=== PATIENT | female | born 1970 | race Caucasian/White ===

== ENCOUNTER 2019-12-24 14:39 | Inpatient (IN) | payer OTHER ==
--- NOTE | 2019-12-24 15:00 | BHS.RME ---
Substance Use & Tx History - Substance Use History Alcohol Substance amount: 1/2-2 pints vodka Frequency of use: Daily Substance route: Oral Date of Last Use: 12/24/19 Marijuana/Hashish Substance amount: sporadic Frequency of use: Daily Substance route: Smoking Date of Last Use: 12/23/19 Nicotine Substance amount: 1/2 pack Frequency of use: Daily Substance route: Smoking Date of Last Use: 12/24/19 Physical/Psych/Mental Status - Behavior General Behavior: Increased activity (restlessness, agitation) Eye Contact: Normal - Cooperativeness Cooperativeness: Cooperative - Thinking Thought Processes: Tight, Logical, Goal Directed Thought content: Future oriented - Physical Health Problems Is patient presently having any pain?: No Does patient presently have any injuries (include location): No Does patient currently have a fever: No Is patient : No CIWA Nausea/Vomitin Muscle Tremors: 4-Moderate,w/Arms Extend Anxiety: 3 Agitation: 3 Paroxysmal Sweats: 4-Forehead w/Sweat Beads Orientation: 0-Oriented Tacttile Disturbances: 0-None Auditory Disturbances: 0-None Visual Disturbances: 0-None Headache: 1-Very Mild CIWA-Ar Total Score: 18
--- NOTE | 2019-12-24 17:33 | HP ---
CIWA Score Nausea/Vomitin Muscle Tremors: 4-Moderate,w/Arms Extend Anxiety: 4-Mod. Anxious/Guarded Agitation: 2 Paroxysmal Sweats: 3 Orientation: 0-Oriented Tacttile Disturbances: 0-None Auditory Disturbances: 0-None Visual Disturbances: 0-None Headache: 3-Moderate CIWA-Ar Total Score: 19 - Admission Criteria OASAS Guidelines: Admission for Medically Managed Detox: Requires at least one of the followin. CIWA greater than 12 2. Seizures within the past 24 hours 3. Delirium tremens within the past 24 hours 4. Hallucinations within the past 24 hours 5. Acute intervention needed for co occurring medical disorder 6. Acute intervention needed for co occurring psychiatric disorder 7. Severe withdrawal that cannot be handled at a lower level of care (continued vomiting, continued diarrhea, abnormal vital signs) requiring intravenous medication and/or fluids 8. Patient presents the following: CIWA greater than 12 Admission Criteria Met: Admission criteria met Admitting History and Physical - Admission History Source: Patient Limitations to Obtaining History: No Limitations - Past Surgical History Past Surgical History: Yes: Laminectomy - Smoking History Smoking history: Current every day smoker Admission [facility] Chief Complaint: alcohol withdrawal symptoms Allergies/Adverse Reactions: Allergies Allergy/AdvReac Type Severity Reaction Status Date / Time ibuprofen Allergy Verified 12/24/19 17:44 shellfish derived Allergy Verified 12/24/19 17:44 History of Present Illness: Patient is a 49 yo female, homeless, residing in long term with hx of alcohol dependence, marijuana and nicotine dependence is here seeking detox after she was seen at [facility] emergency department today for alcohol withdrawal symptoms and was referred to this facility for treatment. Denies any significant medical history. Psych: Anxiety. Patient denies hx of seizures or blackouts. Longest period of sobriety two years while in her 20s. Last detox at [facility] completed treatment July 2019, but keeps relapsing. Exam Limitations: No Limitations - Review of Systems Constitutional: Chills, Loss of Appetite, Weakness EENT: reports: No Symptoms Reported Respiratory: reports: No Symptoms reported Cardiac: reports: No Symptoms Reported GI: reports: Diarrhea, Nausea, Poor Appetite, Poor Fluid Intake, Vomiting, Indigestion, Abdominal cramping : reports: No Symptoms Reported Musculoskeletal: reports: No Symptoms Reported Integumentary: reports: No Symptoms Reported Neuro: reports: Headache, Weakness Endocrine: reports: Excessive Sweating Hematology: reports: No Symptoms Reported Psychiatric: reports: Orientated x3, Anxious Other Systems: Reviewed and Negative Patient History - Patient Medical History Hx Anemia: No Hx Asthma: No Hx Chronic Obstructive Pulmonary Disease (COPD): No Hx Cancer: No Hx Cardiac Disorders: No Hx Congestive Heart Failure: No Hx Hypertension: No Hx Hypercholesterolemia: No Hx Pacemaker: No HX Cerebrovascular Accident: No Hx Seizures: No Hx Dementia: No Hx Diabetes: No Hx Gastrointestinal Disorders: No Hx Liver Disease: No Hx Genitourinary Disorders: No Hx Sexually Transmitted Disorders: No Hx Renal Disease (ESRD): No Hx Thyroid Disease: No Hx Human Immunodeficiency Virus (HIV): No Hx Hepatitis C: No Hx Depression: No Hx Suicide Attempt: No Hx Bipolar Disorder: No Hx Schizophrenia: No Other Medical History: Anxiety - Patient Surgical History Past Surgical History: Yes Hx Neurologic Surgery: No Hx Cataract Extraction: No Hx Cardiac Surgery: No Hx Lung Surgery: No Hx Breast Surgery: No Hx Breast Biopsy: No Hx Abdominal Surgery: No Hx Appendectomy: No Hx Cholecystectomy: No Hx Genitourinary Surgery: No Hx Section: No Hx Orthopedic Surgery: No Hx Hysterectomy: No Other Surgical History: Laminectomy 2006 - PPD History Previous Implant?: No Implanted On Prior [facility] Admission?: No PPD to be Administered?: Yes - Reproductive History Patient is a Female of Child Bearing Age (11 -55 yrs old): Yes LMP comment: Post menopause Patient : No - Smoking Cessation Smoking history: Current every day smoker Have you smoked in the past 12 months: Yes Aproximately how many cigarettes per day: 0.5 Hx Chewing Tobacco Use: No Initiated information on smoking cessation: Yes 'Breaking Loose' booklet given: 12/24/19 - Substance & Tx. History Hx Alcohol Use: Yes Hx Substance Use: Yes Substance Use Type: Marijuana Hx Substance Use Treatment: Yes ([facility] July 2019) - Substances abused Alcohol Substance route: Oral Frequency: Daily Amount used: 1/2 - 2 pint Age of first use: 43 Date of last use: 12/24/19 Admission Physical Exam BHS - Physical General Appearance: Yes: Appropriately Dressed, Moderate Distress, Tremorous, Sweating, Anxious HEENTM: Yes: Within Normal Limits Respiratory: Yes: Within Normal Limits Neck: Yes: Within Normal Limits Breast: Yes: Breast Exam Deferred Cardiology: Yes: Within Normal Limits Abdominal: Yes: Within Normal Limits Genitourinary: Yes: Within Normal Limits Back: Yes: Normal Inspection Musculoskeletal: Yes: Gait Steady Extremities: Yes: Tremors Neurological: Yes: Within Normal Limits, Normal Mood/Affect Integumentary: Yes: Normal Color, Clammy Lymphatic: Yes: Within Normal Limits - Diagnostic (1) Alcohol dependence with withdrawal, uncomplicated Current Visit: Yes Status: Acute (2) Tremor due to drug withdrawal Current Visit: Yes Status: Acute Cleared for Admission S - Detox or Rehab [facility] Level of Care: Medically Managed Detox Regimen/Protocol: Valium Breathalyzer - Breathalyzer Breathalyzer: 0.037 Urine Drug Screen - Test Device Lot number: [id number] Expiration date: 12/20/20 - Control Is test valid?: Yes - Results Drug screen NEGATIVE: No Urine drug screen results: THC-Marijuana Inpatient Rehab Admission - Rehab Decision to Admit Inpatient rehab admission?: No
[2019-12-24] MEDS ORDERED: MAG HYDROX/AL HYDROX/SIMETH 30 ML UNIT-DOSE CUP PO PRN (17:45)
[2019-12-24] MEDS ORDERED: MAGNESIUM CITRATE 300 ML BOTTLE PO PRN (17:45)
[2019-12-24] MEDS ORDERED: METHOCARBAMOL 500 MG TABLET PO PRN (17:45)
[2019-12-24] MEDS ORDERED: hydrOXYzine PAMOATE 25 MG CAPSULE (FP) PO PRN (17:45)
[2019-12-24] MEDS ORDERED: MAGNESIUM HYDROX 2400MG/30ML ORAL SUSPENSION 30 ML CUP PO PRN (17:45)
[2019-12-24] MEDS ORDERED: ACETAMINOPHEN 325 MG TABLET (FP) PO PRN ×2 (17:45)
[2019-12-24] MEDS ORDERED: MENTHOL/PHENOL 1 EACH UD MM PRN (17:45)
[2019-12-24] MEDS ORDERED: BACLOFEN 10 MG TABLET (FP) PO PRN (17:49)
[2019-12-24] MEDS ORDERED: ONDANSETRON *ODT* 4 MG TABLET SL ONE (19:00)
[2019-12-24 19:04] VITALS: BMI 25.2
[2019-12-24] MEDS: diazePAM 5 MG TABLET PO PRN (19:45)
[2019-12-24] MEDS: PRENATAL VITAMINS W/ FOLIC ACID TABLET (FP) PO SCH (19:45)
[2019-12-24] MEDS: diazePAM 5 MG TABLET PO SCH (22:21)
[2019-12-24] MEDS: THIAMINE HCL 100 MG TABLET (FP) PO SCH (22:22)
[2019-12-24] MEDS: MELATONIN 5 MG TABLETS PO SCH (22:22)
[2019-12-25] MEDS: diazePAM 5 MG TABLET PO SCH ×3 (06:58→22:46)
[2019-12-25] MEDS: PRENATAL VITAMINS W/ FOLIC ACID TABLET (FP) PO SCH (10:22)
[2019-12-25] MEDS: NICOTINE 14 MG/24 HOURS TOPICAL PATCH TD SCH (10:22)
[2019-12-25] MEDS: diazePAM 5 MG TABLET PO PRN ×2 (10:26→19:12)
--- NOTE | 2019-12-25 10:33 | PN ---
[facility] CIWA - CIWA Score Nausea/Vomitin-No Nausea/No Vomiting Muscle Tremors: None Anxiety: 0-No Anxiety, at Ease Agitation: 0-Normal Activity Paroxysmal Sweats: 1-Minimal Palms Moist Orientation: 1-Uncertain about Date Tacttile Disturbances: 0-None Auditory Disturbances: 0-None Visual Disturbances: 0-None Headache: 0-None Present CIWA-Ar Total Score: 2 BHS Progress Note (SOAP) Subjective: Patient was examined in the room. Patient has a pleasant demeanor. Patient in no acute distress and has no complaints. Objective: 12/25/19 10:28 General: Patient alert and in no acute distress, WNWD, feels well Mental status: Patient judgment intact MSK/Neuro: Patient MS 5/5 Gait: Patient ambulates properly, gait steady skin: no lesions visible 12/25/19 10:29 Last Vital Signs Temp Pulse Resp BP Pulse Ox 97.7 F 88 18 152/98 98 12/25/19 08:51 12/25/19 08:51 12/25/19 08:51 12/25/19 08:51 12/25/19 08:51 Current Medications Generic Name Dose Route Start Last Admin Trade Name Freq PRN Reason Stop Dose Admin Acetaminophen 650 mg 12/24/19 17:45 Tylenol - PO Q6H PRN PAIN LEVEL 4 - 6 Acetaminophen 650 mg 12/24/19 17:45 Tylenol - PO Q6H PRN FEVER Al Hydroxide/Mg Hydroxide 30 ml 12/24/19 17:45 Mylanta Oral Suspension - PO Q6H PRN DYSPEPSIA Baclofen 10 mg 12/24/19 17:49 Lioresal - PO TID PRN tremors / spasms Diazepam 5 mg 12/24/19 22:00 12/25/19 06:58 Valium - PO 12/25/19 22:01 5 mg TID KENNETH Administration Diazepam 5 mg 12/26/19 06:00 Valium - PO 12/26/19 18:01 Q12H KENNETH Diazepam 5 mg 12/27/19 06:00 Valium - PO 12/27/19 06:01 ONCE ONE Diazepam 10 mg 12/24/19 17:45 12/25/19 10:26 Valium - PO 12/27/19 17:44 10 mg Q4H PRN Administration WITHDRAWAL(CONT SUBST) Eucalyptus/Menthol/Phenol/Sorbitol 1 each 12/24/19 17:45 Cepastat Lozenge - MM 12/30/19 17:45 Q4H PRN SORE THROAT Hydroxyzine Pamoate 25 mg 12/24/19 17:45 Vistaril - PO 12/30/19 17:47 Q6H PRN ANXIETY Magnesium Citrate 300 ml 12/24/19 17:45 Citroma - PO Q48H PRN CONSTIPATION Magnesium Hydroxide 30 ml 12/24/19 17:45 Milk Of Magnesia - PO PRN PRN CONSTIPATION Melatonin 5 mg 12/24/19 22:00 12/24/19 22:22 Melatonin PO 5 mg HS KENNETH Administration Nicotine 14 mg 12/25/19 10:00 12/25/19 10:22 Nicoderm Patch - TD Not Given DAILY [facility] Multivit/Folic Acid/Iron 1 tab 12/24/19 19:00 12/25/19 10:22 Vitamins (Sjr) - PO Not Given DAILY KENNETH Thiamine HCl 100 mg 12/24/19 22:00 12/24/19 22:22 Vitamin B1 - PO 100 mg HS KENNETH Administration Discontinued Medications Generic Name Dose Route Start Last Admin Trade Name Freq PRN Reason Stop Dose Admin Methocarbamol 500 mg 12/24/19 17:45 Robaxin - PO 12/30/19 17:45 Q6H PRN MUSCLE SPASMS Ondansetron HCl 4 mg 12/24/19 19:00 12/24/19 19:45 Zofran Odt - SL 12/24/19 19:01 4 mg ONCE ONE Administration Tuberculin PPD 5 units 12/24/19 19:00 12/24/19 19:49 Tubersol ([facility] Only) 5ml Vial ID 12/24/19 19:01 5 tu ONCE ONE Administration Assessment: 12/25/19 10:29 1. Patient on valium taper due to alcohol abuse. Plan: 1. Patient on valium taper due to alcohol abuse.
--- NOTE | 2019-12-25 10:57 | EKG ---
Test Reason : Blood Pressure : / mmHG Vent. Rate : 066 BPM Atrial Rate : 066 BPM P-R Int : 178 ms QRS Dur : 080 ms QT Int : 438 ms P-R-T Axes : 066 060 053 degrees QTc Int : 459 ms NORMAL SINUS RHYTHM PEAKED T WAVES, CLINICAL CORRELATION REQUIRED NO PREVIOUS ECGS AVAILABLE Confirmed by RACHEL CUMMINGS MD ([id number]) on 12/25/2019 10:56:31 AM Referred By: DARREN SOSA Confirmed By:RACHEL CUMMINGS MD
--- NOTE | 2019-12-25 11:51 | CONSULT ---
[facility] Psychiatric Consult - Data Date of interview: 12/25/19 Admission source: [facility] Identifying data: Patient is a 49 year old single female, without children, unemployed, resides in a long term, and is supported with carlos assistance and food stamps. This is patient's first admission to detox at [facility]. Patient admitted to for alcohol dependence. Substance Abuse History: Smoking Cessation. Smoking history: Current every day smoker. Have you smoked in the past 12 months: Yes. Aproximately how many cigarettes per day: 0.5. Hx Chewing Tobacco Use: No. Initiated information on smoking cessation: Yes. 'Breaking Loose' booklet given: 12/24/19. - Substance & Tx. History. Hx Alcohol Use: Yes. Hx Substance Use: Yes. Substance Use Type: Marijuana. Hx Substance Use Treatment: Yes ([facility] July 2019). - Substances abused. Alcohol. Substance route: Oral. Frequency: Daily. Amount used: 1/2 - 2 pint. Age of first use: 43. Date of last use: 12/24/19 Medical History: Laminectomy Psychiatric History: Patient's first psychiatric contact was at a DPT (Dialectical Behavior Therapy) program approximately seven years ago. She reports being diagnosed with undecided bipolar disorder but was not treated with psychotropic medication. Patient reports history of one psychiatric hospitalization three years ago at [facility] secondary to depression. She was hospitalized for one week but was not prescribed psychotropic medications. Her next psychiatric occured last month at the [facility] clinic in [place], [place]. Patient states that she see's a therapist and has been seeing a psychiatrist remotely. Ms. Sanchez states that she was prescribed lexapro but has yet to fill her prescription. At present patient reports stable mood and is not interested in starting lexapro. Physical/Sexual Abuse/Trauma History: denies. Mental Status Exam - Mental Status Exam Alert and Oriented to: Time, Place, Person Cognitive Function: Good Patient Appearance: Well Groomed Mood: Withdrawn Affect: Mood Congruent Patient Behavior: Appropriate, Cooperative Speech Pattern: Appropriate Voice Loudness: Normal Thought Process: Goal Oriented Thought Disorder: Not Present Hallucinations: Denies Suicidal Ideation: Denies Homicidal Ideation: Denies Insight/Judgement: Poor Sleep: Poorly Appetite: Fair Muscle strength/Tone: Normal Gait/Station: Normal Psychiatric Findings - Problem List ([place] 1, 2,3) (1) Alcohol-induced mood disorder Current Visit: Yes Status: Acute (2) Alcohol dependence with withdrawal, uncomplicated Current Visit: Yes Status: Acute (3) Mood disorder Current Visit: No Status: Suspected - Initial Treatment Plan Initial Treatment Plan: Psychoeducation provided. Detoxification in progress. Observation.
[2019-12-25 12:26] LABS: HEMATOCRIT 40.9 % (32.4-45.2); HEMOGLOBIN 13.4 GM/dL (10.7-15.3); MCH 32.4 pg (25.7-33.7); MCHC 32.7 g/dl (32.0-36.0); MEAN CELL VOLUME 99.1 fl (80-96); MEAN PLT VOLUME 10.7 fl (7.5-11.1); PLATELET COUNT 117 K/MM3 (134-434); RBC 4.13 M/mm3 (3.60-5.2); WHITE BLOOD COUNT 4.3 K/mm3 (4.0-10.0)
[2019-12-25] MEDS: NICOTINE POLACRILEX 2 MG GUM BUC PRN ×3 (12:36→19:09)
[2019-12-25 12:42] LABS: ALBUMIN 3.5 g/dl (3.4-5.0); BILIRUBIN,TOTAL 0.6 mg/dL (0.2-1); BLOOD UREA NITROGEN 8.5 mg/dL (7-18); CALCIUM 8.7 mg/dL (8.5-10.1); CREATININE 0.7 mg/dL (0.55-1.3); POTASSIUM 4.1 mmol/L (3.5-5.1); TOT PROT 6.5 g/dl (6.4-8.2)
[2019-12-25 21:11] LABS: EPI CELLS 19 /uL (0-25.1); HYALINE CASTS 0 /uL (0-3.1); PH,URINE 6.5 (5.0-8.0); URINE APPEARANCE CLEAR; URINE BACTERIA 176 /uL (0-1359); URINE BILIRUBIN NEGATIVE (NEGATIVE); URINE COLOR YELLOW; URINE GLUCOSE (UA) 1+ (NEGATIVE); URINE KETONE NEGATIVE (NEGATIVE); URINE LEUK ESTERASE 2+ (NEGATIVE); URINE NITRITE NEGATIVE (NEGATIVE); URINE PROTEIN NEGATIVE (NEGATIVE); URINE RBC 1 /uL (0-23.9); URINE UROBILINOGEN 0.2 mg/dL (0.2-1.0); URINE WBC 70 /uL (0-25.8)
[2019-12-25] MEDS: MELATONIN 5 MG TABLETS PO SCH (22:46)
[2019-12-25] MEDS: THIAMINE HCL 100 MG TABLET (FP) PO SCH (22:47)
[2019-12-26] MEDS: diazePAM 5 MG TABLET PO SCH ×2 (05:45→18:09)
--- NOTE | 2019-12-26 10:17 | PN ---
[facility] CIWA - CIWA Score Nausea/Vomitin-No Nausea/No Vomiting Muscle Tremors: None Anxiety: 1-Mildly Anxious Agitation: 0-Normal Activity Paroxysmal Sweats: 1-Minimal Palms Moist Orientation: 0-Oriented Tacttile Disturbances: 0-None Auditory Disturbances: 0-None Visual Disturbances: 0-None Headache: 0-None Present CIWA-Ar Total Score: 2 BHS Progress Note (SOAP) Subjective: c/o mild withdrawal symptoms. Objective: 12/26/19 10:16 Vital Signs 12/26/19 12/26/19 06:39 08:43 Temperature 97.7 F 97.8 F Pulse Rate 80 64 Respiratory 16 18 Rate Blood Pressure 134/94 127/78 O2 Sat by Pulse 97 97 Oximetry (%) Laboratory Last Values WBC 4.3 K/mm3 (4.0-10.0) 12/25/19 08:40 RBC 4.13 M/mm3 (3.60-5.2) 12/25/19 08:40 Hgb 13.4 GM/dL (10.7-15.3) 12/25/19 08:40 Hct 40.9 % (32.4-45.2) 12/25/19 08:40 MCV 99.1 fl (80-96) H 12/25/19 08:40 MCH 32.4 pg (25.7-33.7) 12/25/19 08:40 MCHC 32.7 g/dl (32.0-36.0) 12/25/19 08:40 RDW 15.0 % (11.6-15.6) 12/25/19 08:40 Plt Count 117 K/MM3 (134-434) L 12/25/19 08:40 MPV 10.7 fl (7.5-11.1) 12/25/19 08:40 Sodium 138 mmol/L (136-145) 12/25/19 08:40 Potassium 4.1 mmol/L (3.5-5.1) 12/25/19 08:40 Chloride 102 mmol/L (98-107) 12/25/19 08:40 Carbon Dioxide 30 mmol/L (21-32) 12/25/19 08:40 Anion Gap 7 MMOL/L (8-16) L 12/25/19 08:40 BUN 8.5 mg/dL (7-18) 12/25/19 08:40 Creatinine 0.7 mg/dL (0.55-1.3) 12/25/19 08:40 Est GFR (CKD-EPI)AfAm 116.27 12/25/19 08:40 Est GFR (CKD-EPI)NonAf 100.32 12/25/19 08:40 Random Glucose 131 mg/dL (74-106) H 12/25/19 08:40 Calcium 8.7 mg/dL (8.5-10.1) 12/25/19 08:40 Total Bilirubin 0.6 mg/dL (0.2-1) 12/25/19 08:40 AST 27 U/L (15-37) 12/25/19 08:40 ALT 31 U/L (13-61) 12/25/19 08:40 Alkaline Phosphatase 102 U/L (45-117) 12/25/19 08:40 Total Protein 6.5 g/dl (6.4-8.2) 12/25/19 08:40 Albumin 3.5 g/dl (3.4-5.0) 12/25/19 08:40 Urine Color Yellow 12/25/19 17:11 Urine Appearance Clear 12/25/19 17:11 Urine pH 6.5 (5.0-8.0) 12/25/19 17:11 Ur Specific [place] 1.005 (1.010-1.035) L 12/25/19 17:11 Urine Protein Negative (NEGATIVE) 12/25/19 17:11 Urine Glucose (UA) 1+ (NEGATIVE) H 12/25/19 17:11 Urine Ketones Negative (NEGATIVE) 12/25/19 17:11 Urine Blood Negative (NEGATIVE) 12/25/19 17:11 Urine Nitrite Negative (NEGATIVE) 12/25/19 17:11 Urine Bilirubin Negative (NEGATIVE) 12/25/19 17:11 Urine Urobilinogen 0.2 mg/dL (0.2-1.0) 12/25/19 17:11 Ur Leukocyte Esterase 2+ (NEGATIVE) H 12/25/19 17:11 Urine WBC (Auto) 70 /uL (0-25.8) 12/25/19 17:11 Urine RBC (Auto) 1 /uL (0-23.9) 12/25/19 17:11 Urine Casts (Auto) 0 /uL (0-3.1) 12/25/19 17:11 U Epithel Cells (Auto) 19 /uL (0-25.1) 12/25/19 17:11 Urine Bacteria (Auto) 176 /uL (0-1359) 12/25/19 17:11 Syphilis Serology Non-reactive (NONREACTIVE) 12/25/19 08:40 COVID-19 ([facility]) Not detected (Not Detected) 12/24/19 19:15 Labs noted. Assessment: 12/26/19 10:18 AOX3, in no acute respiratory distress. Full ROM, ambulating in the unit. Mild Withdrawal symptoms. For d/c tomorrow. Plan: continue detox. D/C in AM.
[2019-12-26] MEDS: NICOTINE 14 MG/24 HOURS TOPICAL PATCH TD SCH (10:31)
[2019-12-26] MEDS: PRENATAL VITAMINS W/ FOLIC ACID TABLET (FP) PO SCH (10:31)
[2019-12-26] MEDS: NICOTINE POLACRILEX 2 MG GUM BUC PRN ×3 (13:01→18:59)
[2019-12-26] MEDS: diazePAM 5 MG TABLET PO PRN (22:18)
[2019-12-26] MEDS: MELATONIN 5 MG TABLETS PO SCH (22:19)
[2019-12-26] MEDS: THIAMINE HCL 100 MG TABLET (FP) PO SCH (22:19)
[2019-12-27] MEDS: NICOTINE POLACRILEX 2 MG GUM BUC PRN (05:51)
[2019-12-27] MEDS ORDERED: diazePAM 5 MG TABLET PO ONE (06:00)
[2019-12-27] MEDS ORDERED: MASKS NR ONE (06:53)
[2019-12-27 09:31] VITALS: BP 116/65; PULSE 82; TEMP 97.1
--- NOTE | 2019-12-27 13:12 | DS ---
[facility] Detox Discharge Summary Admission Date: 12/24/19 Discharge Date: 12/27/19 - History Present History: Alcohol Dependence Additional Comments: 49 years old female was admitted on 12/24/19 for alcohol withdrawal sx management treated with valium detox regiment seen by psychiatrist no medical intervention ms arteaga has completed the valium regiment and is tolerated well General Appearance: Yes: Appropriately Dressed, no Distress, mild Tremorous, not Sweating, less Anxious HEENTM: Yes: Within Normal Limits Respiratory: Yes: Within Normal Limits Neck: Yes: Within Normal Limits Breast: Yes: Breast Exam Deferred Cardiology: Yes: Within Normal Limits Abdominal: Yes: Within Normal Limits Genitourinary: Yes: Within Normal Limits Back: Yes: Normal Inspection Musculoskeletal: Yes: Gait Steady Extremities: Yes: Tremors Neurological: Yes: Within Normal Limits, Normal Mood/Affect Integumentary: Yes: Normal Color Lymphatic: Yes: Within Normal Limits Pertinent Past History: time for discharge 34 minutes - Physical Exam Results Vital Signs: Vital Signs Temperature 97.1 F L 12/27/19 09:00 Pulse Rate 82 12/27/19 09:00 Respiratory Rate 18 12/27/19 09:00 Blood Pressure 116/65 12/27/19 09:00 O2 Sat by Pulse Oximetry (%) 97 12/27/19 09:00 Pertinent Admission Physical Exam Findings: alcohol withdrawal Vital Signs - 24 hr 12/26/19 12/26/19 12/27/19 16:45 20:35 06:26 Temperature 96.1 F L 97.1 F L 96.4 F L Pulse Rate 72 75 76 Respiratory 18 16 18 Rate Blood Pressure 126/79 125/77 116/73 O2 Sat by Pulse 97 100 97 Oximetry (%) 12/27/19 09:00 Temperature 97.1 F L Pulse Rate 82 Respiratory 18 Rate Blood Pressure 116/65 O2 Sat by Pulse 97 Oximetry (%) Laboratory Tests 12/24/19 12/25/19 12/25/19 19:15 08:40 08:40 WBC 4.3 RBC 4.13 Hgb 13.4 Hct 40.9 MCV 99.1 H MCH 32.4 MCHC 32.7 RDW 15.0 Plt Count 117 L MPV 10.7 Sodium Potassium Chloride Carbon Dioxide Anion Gap BUN Creatinine Est GFR (CKD-EPI)AfAm Est GFR (CKD-EPI)NonAf Random Glucose Calcium Total Bilirubin AST ALT Alkaline Phosphatase Total Protein Albumin Urine Color Urine Appearance Urine pH Ur Specific [place] Urine Protein Urine Glucose (UA) Urine Ketones Urine Blood Urine Nitrite Urine Bilirubin Urine Urobilinogen Ur Leukocyte Esterase Urine WBC (Auto) Urine RBC (Auto) Urine Casts (Auto) U Epithel Cells (Auto) Urine Bacteria (Auto) Syphilis Serology Non-reactive COVID-19 ([facility]) Not detected 12/25/19 12/25/19 08:40 17:11 WBC RBC Hgb Hct MCV MCH MCHC RDW Plt Count MPV Sodium 138 Potassium 4.1 Chloride 102 Carbon Dioxide 30 Anion Gap 7 L BUN 8.5 Creatinine 0.7 Est GFR (CKD-EPI)AfAm 116.27 Est GFR (CKD-EPI)NonAf 100.32 Random Glucose 131 H Calcium 8.7 Total Bilirubin 0.6 AST 27 ALT 31 Alkaline Phosphatase 102 Total Protein 6.5 Albumin 3.5 Urine Color Yellow Urine Appearance Clear Urine pH 6.5 Ur Specific [place] 1.005 L Urine Protein Negative Urine Glucose (UA) 1+ H Urine Ketones Negative Urine Blood Negative Urine Nitrite Negative Urine Bilirubin Negative Urine Urobilinogen 0.2 Ur Leukocyte Esterase 2+ H Urine WBC (Auto) 70 Urine RBC (Auto) 1 Urine Casts (Auto) 0 U Epithel Cells (Auto) 19 Urine Bacteria (Auto) 176 Syphilis Serology COVID-19 ([facility]) lab noted uti asymptomatic - Treatment Hospital Course: Detox Protocol Followed, Detoxed Safely, Responded well, Discharged Condition Good, Rehab Referral Accepted Patient has Accepted a Rehab Referral to: [facility] - Medication Discharge Medications: Ambulatory Orders NK [No Known Home Medication] 12/24/19 - Diagnosis (1) Substance induced mood disorder Status: Suspected (2) Alcohol dependence with withdrawal, uncomplicated Status: Acute - AMA Did Patient Leave Against Medical Advice: No CIWA Score - CIWA Score Nausea/Vomitin-No Nausea/No Vomiting Muscle Tremors: None Anxiety: 1-Mildly Anxious Agitation: 0-Normal Activity Paroxysmal Sweats: No Perspiration Orientation: 0-Oriented Tacttile Disturbances: 0-None Auditory Disturbances: 0-None Visual Disturbances: 0-None Headache: 0-None Present CIWA-Ar Total Score: 1
== END 2019-12-27 09:46 | disposition home or self-care (01) | DRG 775 ==
LOC: YASAS 14:39 → Y3N 18:50
PROVIDERS: ADMIT Allergy & Immunology; ATTEND Allergy & Immunology
PROC: HZ2ZZZZ Detoxification Services for Substance Abuse Treatment (ICD-10-PCS; principal; 2019-12-24)
DX: F10.230 Alcohol dependence with withdrawal, uncomplicated (principal); F12.20 Cannabis dependence, uncomplicated; F17.210 Nicotine dependence, cigarettes, uncomplicated; F19.24 Other psychoactive substance dependence with psychoactive substance-induced mood disorder; F10.24 Alcohol dependence with alcohol-induced mood disorder; F39 Unspecified mood [affective] disorder; F41.9 Anxiety disorder, unspecified; N39.0 Urinary tract infection, site not specified; G25.1 Drug-induced tremor; Z88.6 Allergy status to analgesic agent; Z91.013 Allergy to seafood; Z56.0 Unemployment, unspecified; Z59.0 Homelessness
CPT/HCPCS: 36415; 80053; 81003; 85027; 86780; 93005; 93010; Q0162; U0003

== ENCOUNTER 2021-07-17 12:16 | Inpatient (IN) | payer OTHER ==
[2021-07-17] MEDS ORDERED: MAG HYDROX/AL HYDROX/SIMETH 30 ML UNIT-DOSE CUP PO PRN (13:39)
[2021-07-17] MEDS ORDERED: ONDANSETRON *ODT* 4 MG TABLET SL PRN (13:39)
[2021-07-17] MEDS ORDERED: MAGNESIUM HYDROX 2400MG/30ML ORAL SUSPENSION 30 ML CUP PO PRN (13:39)
[2021-07-17] MEDS ORDERED: chlordiazePOXIDE HCL 25 MG CAPSULE PO PRN (13:39)
[2021-07-17] MEDS ORDERED: IBUPROFEN 400 MG TABLET (FP) PO PRN (13:39)
[2021-07-17] MEDS ORDERED: MAGNESIUM CITRATE 300 ML BOTTLE PO PRN (13:39)
[2021-07-17] MEDS ORDERED: MENTHOL/PHENOL 1 EACH UD MM PRN (13:39)
[2021-07-17] MEDS ORDERED: BISMUTH SUBSALICYLATE 524 MG/30 ML PO PRN (13:39)
[2021-07-17] MEDS ORDERED: LOPERAMIDE HCL 2 MG CAPSULE PO PRN (13:39)
[2021-07-17] MEDS ORDERED: ACETAMINOPHEN 325 MG TABLET (FP) PO PRN (13:39)
[2021-07-17 13:58] VITALS: BMI 22.8
[2021-07-17] MEDS: hydrOXYzine PAMOATE 25 MG CAPSULE (FP) PO SCH ×3 (15:36→22:19)
[2021-07-17] MEDS: METHOCARBAMOL 500 MG TABLET PO PRN (15:36)
[2021-07-17] MEDS: PRENATAL VITAMINS W/ FOLIC ACID TABLET (FP) PO SCH (15:36)
[2021-07-17] MEDS: NICOTINE 14 MG/24 HOURS TOPICAL PATCH TD SCH (15:46)
[2021-07-17] MEDS ORDERED: diazePAM 5 MG TABLET PO PRN (15:56)
[2021-07-17 16:40] LABS: HEMATOCRIT 38.6 % (32.4-45.2); HEMOGLOBIN 12.8 GM/dL (10.7-15.3); MCH 31.2 pg (25.7-33.7); MCHC 33.1 g/dl (32.0-36.0); MEAN CELL VOLUME 94.1 fl (80-96); MEAN PLT VOLUME 11.3 fl (7.5-11.1); PLATELET COUNT 102 10^3/uL (134-434); RDW 14.3 % (11.6-15.6); WHITE BLOOD COUNT 5.3 K/mm3 (4.0-10.0)
[2021-07-17] MEDS ORDERED: chlordiazePOXIDE HCL 25 MG CAPSULE PO SCH (17:00)
[2021-07-17 17:11] LABS: ALBUMIN 3.8 g/dl (3.4-5.0); BLOOD UREA NITROGEN 9.5 mg/dL (7-18); CALCIUM 8.6 mg/dL (8.5-10.1)
[2021-07-17 17:14] LABS: CREATININE 0.6 mg/dL (0.55-1.3)
[2021-07-17 17:16] LABS: BILIRUBIN,TOTAL 0.6 mg/dL (0.2-1); TOT PROT 6.9 g/dl (6.4-8.2)
[2021-07-17] MEDS: diazePAM 5 MG TABLET PO SCH ×2 (18:49→22:18)
[2021-07-17] MEDS: THIAMINE HCL 100 MG TABLET (FP) PO SCH (22:19)
[2021-07-17] MEDS: MELATONIN 5 MG TABLETS PO SCH (22:19)
[2021-07-17] MEDS: ACETAMINOPHEN 325 MG TABLET (FP) PO PRN (22:27)
[2021-07-18] MEDS: diazePAM 5 MG TABLET PO SCH ×3 (06:14→22:09)
[2021-07-18] MEDS: ACETAMINOPHEN 325 MG TABLET (FP) PO PRN (06:16)
[2021-07-18] MEDS: hydrOXYzine PAMOATE 25 MG CAPSULE (FP) PO SCH ×6 (06:16→22:09)
[2021-07-18] MEDS: NICOTINE POLACRILEX 4 MG GUM BUC PRN ×3 (06:24→14:12)
[2021-07-18] MEDS: PRENATAL VITAMINS W/ FOLIC ACID TABLET (FP) PO SCH (10:14)
[2021-07-18] MEDS: diazePAM 5 MG TABLET PO PRN ×2 (10:15→17:47)
[2021-07-18] MEDS: METHOCARBAMOL 500 MG TABLET PO PRN ×2 (10:15→17:48)
[2021-07-18] MEDS: NICOTINE 14 MG/24 HOURS TOPICAL PATCH TD SCH (10:20)
[2021-07-18] MEDS: NICOTINE 10 MG CARTRIDGE (INHALER) IH PRN ×3 (10:57→20:03)
[2021-07-18] MEDS ORDERED: TOPIRAMATE 100 MG TABLET PO ONE (11:55)
[2021-07-18] MEDS: MELATONIN 5 MG TABLETS PO SCH (22:10)
[2021-07-18] MEDS: THIAMINE HCL 100 MG TABLET (FP) PO SCH (22:11)
[2021-07-19] MEDS ORDERED: chlordiazePOXIDE HCL 25 MG CAPSULE PO SCH (05:00)
[2021-07-19] MEDS: hydrOXYzine PAMOATE 25 MG CAPSULE (FP) PO SCH ×5 (05:54→22:20)
[2021-07-19] MEDS: diazePAM 5 MG TABLET PO SCH ×4 (05:54→22:20)
[2021-07-19 06:06] LABS: SARS-CoV-2 NAA Not Detected (Not Detected)
[2021-07-19] MEDS: NICOTINE POLACRILEX 4 MG GUM BUC PRN ×2 (09:11→13:40)
[2021-07-19] MEDS: TOPIRAMATE 100 MG TABLET PO SCH (10:10)
[2021-07-19] MEDS: PRENATAL VITAMINS W/ FOLIC ACID TABLET (FP) PO SCH (10:10)
[2021-07-19] MEDS: METHOCARBAMOL 500 MG TABLET PO PRN ×2 (10:11→17:34)
[2021-07-19] MEDS: NICOTINE 10 MG CARTRIDGE (INHALER) IH PRN ×3 (10:11→22:25)
[2021-07-19] MEDS: NICOTINE 14 MG/24 HOURS TOPICAL PATCH TD SCH (10:15)
[2021-07-19] MEDS ORDERED: TOPIRAMATE 100 MG TABLET PO ONE (11:45)
[2021-07-19] MEDS: MELATONIN 5 MG TABLETS PO SCH (22:20)
[2021-07-19] MEDS: THIAMINE HCL 100 MG TABLET (FP) PO SCH (22:21)
[2021-07-19] MEDS: ACETAMINOPHEN 325 MG TABLET (FP) PO PRN (22:24)
[2021-07-20] MEDS ORDERED: chlordiazePOXIDE HCL 10 MG CAPSULE PO PRN
[2021-07-20] MEDS ORDERED: chlordiazePOXIDE HCL 10 MG CAPSULE PO SCH (05:00)
[2021-07-20] MEDS: hydrOXYzine PAMOATE 25 MG CAPSULE (FP) PO SCH ×5 (05:44→22:21)
[2021-07-20] MEDS: diazePAM 5 MG TABLET PO SCH ×3 (05:44→22:21)
[2021-07-20] MEDS: NICOTINE POLACRILEX 4 MG GUM BUC PRN ×3 (05:46→15:50)
[2021-07-20] MEDS: NICOTINE 10 MG CARTRIDGE (INHALER) IH PRN ×5 (06:18→22:24)
[2021-07-20] MEDS: PRENATAL VITAMINS W/ FOLIC ACID TABLET (FP) PO SCH (09:31)
[2021-07-20] MEDS: TOPIRAMATE 100 MG TABLET PO SCH (09:31)
[2021-07-20] MEDS: NICOTINE 14 MG/24 HOURS TOPICAL PATCH TD SCH (09:32)
[2021-07-20] MEDS: METHOCARBAMOL 500 MG TABLET PO PRN ×2 (11:59→17:54)
[2021-07-20] MEDS: MELATONIN 5 MG TABLETS PO SCH (22:21)
[2021-07-20] MEDS: THIAMINE HCL 100 MG TABLET (FP) PO SCH (22:21)
[2021-07-20] MEDS: ACETAMINOPHEN 325 MG TABLET (FP) PO PRN (22:22)
[2021-07-21] MEDS ORDERED: chlordiazePOXIDE HCL 10 MG CAPSULE PO SCH (05:00)
[2021-07-21] MEDS: hydrOXYzine PAMOATE 25 MG CAPSULE (FP) PO SCH ×5 (05:34→22:11)
[2021-07-21] MEDS: diazePAM 5 MG TABLET PO SCH ×2 (05:35→18:06)
[2021-07-21] MEDS: NICOTINE POLACRILEX 4 MG GUM BUC PRN ×5 (05:37→18:06)
[2021-07-21] MEDS: NICOTINE 10 MG CARTRIDGE (INHALER) IH PRN ×3 (10:25→20:18)
[2021-07-21] MEDS: TOPIRAMATE 100 MG TABLET PO SCH (10:26)
[2021-07-21] MEDS: METHOCARBAMOL 500 MG TABLET PO PRN ×2 (10:26→22:12)
[2021-07-21] MEDS: PRENATAL VITAMINS W/ FOLIC ACID TABLET (FP) PO SCH (10:27)
[2021-07-21] MEDS: NICOTINE 14 MG/24 HOURS TOPICAL PATCH TD SCH (10:27)
[2021-07-21] MEDS: ACETAMINOPHEN 325 MG TABLET (FP) PO PRN ×2 (13:17→23:16)
[2021-07-21] MEDS: LIDOCAINE 5% TOPICAL PATCH TP SCH (15:40)
[2021-07-21] MEDS ORDERED: diazePAM 5 MG TABLET PO SCH (15:45)
[2021-07-21] MEDS ORDERED: LIDOCAINE PATCH REMOVAL MC SCH (22:00)
[2021-07-21] MEDS: THIAMINE HCL 100 MG TABLET (FP) PO SCH (22:12)
[2021-07-21] MEDS: MELATONIN 5 MG TABLETS PO SCH (22:12)
[2021-07-22] MEDS ORDERED: diazePAM 5 MG TABLET PO ONE (05:00)
[2021-07-22] MEDS ORDERED: chlordiazePOXIDE HCL 10 MG CAPSULE PO ONE (05:00)
[2021-07-22] MEDS: hydrOXYzine PAMOATE 25 MG CAPSULE (FP) PO SCH ×2 (06:13→09:55)
[2021-07-22] MEDS: NICOTINE 10 MG CARTRIDGE (INHALER) IH PRN ×2 (06:14→10:27)
[2021-07-22] MEDS: NICOTINE POLACRILEX 4 MG GUM BUC PRN ×2 (08:10→10:27)
[2021-07-22] MEDS: LIDOCAINE 5% TOPICAL PATCH TP SCH (09:55)
[2021-07-22] MEDS: TOPIRAMATE 100 MG TABLET PO SCH (09:55)
[2021-07-22] MEDS: PRENATAL VITAMINS W/ FOLIC ACID TABLET (FP) PO SCH (09:55)
[2021-07-22 09:59] VITALS: BP 114/69; PULSE 84; TEMP 96.9
[2021-07-22] MEDS: NICOTINE 14 MG/24 HOURS TOPICAL PATCH TD SCH (10:27)
== END 2021-07-22 11:44 | disposition home or self-care (01) | DRG 775 ==
LOC: YASAS 12:16 → Y6N 14:36
PROVIDERS: ADMIT Allergy & Immunology; ATTEND Allergy & Immunology
PROC: HZ2ZZZZ Detoxification Services for Substance Abuse Treatment (ICD-10-PCS; principal; 2021-07-17)
DX: F10.230 Alcohol dependence with withdrawal, uncomplicated (principal); F17.210 Nicotine dependence, cigarettes, uncomplicated; F31.9 Bipolar disorder, unspecified; F19.24 Other psychoactive substance dependence with psychoactive substance-induced mood disorder; F10.24 Alcohol dependence with alcohol-induced mood disorder; F39 Unspecified mood [affective] disorder; F43.10 Post-traumatic stress disorder, unspecified; G25.1 Drug-induced tremor; Z88.6 Allergy status to analgesic agent; Z91.013 Allergy to seafood; Z59.01 Sheltered homelessness
CPT/HCPCS: 36415; 80053; 81025; 83036; 85027; 86780; 87811; 93005; 93010; C9803-CS; U0003; U0005

== ENCOUNTER 2021-07-24 14:41 | Inpatient (IN) | payer OTHER ==
[2021-07-24] MEDS ORDERED: guaiFENesin 200 MG/10 ML 10 ML UNIT-DOSE CUPS PO PRN (16:33)
[2021-07-24] MEDS ORDERED: ACETAMINOPHEN 325 MG TABLET (FP) PO PRN (16:33)
[2021-07-24] MEDS ORDERED: MENTHOL/PHENOL 1 EACH UD MM PRN (16:33)
[2021-07-24] MEDS ORDERED: P-EPHED 60MG/TRIPROLIDI 2.5MG TABLET PO PRN (16:33)
[2021-07-24] MEDS ORDERED: MAGNESIUM CITRATE 300 ML BOTTLE PO PRN (16:33)
[2021-07-24] MEDS ORDERED: MAG HYDROX/AL HYDROX/SIMETH 30 ML UNIT-DOSE CUP PO PRN (16:33)
[2021-07-24] MEDS ORDERED: LOPERAMIDE HCL 2 MG CAPSULE PO PRN (16:33)
[2021-07-24 21:41] VITALS: BMI 21.9
[2021-07-24] MEDS: NICOTINE 10 MG CARTRIDGE (INHALER) IH PRN (22:15)
[2021-07-24] MEDS: THIAMINE HCL 100 MG TABLET (FP) PO SCH (22:15)
[2021-07-24] MEDS: LIDOCAINE PATCH REMOVAL MC SCH (22:15)
[2021-07-24] MEDS: hydrOXYzine PAMOATE 25 MG CAPSULE (FP) PO PRN (22:24)
[2021-07-24] MEDS: MELATONIN 5 MG TABLETS PO PRN (22:24)
[2021-07-25] MEDS: NICOTINE 10 MG CARTRIDGE (INHALER) IH PRN ×3 (06:46→18:10)
[2021-07-25] MEDS: NICOTINE 7 MG/24 HOURS TOPICAL PATCH TD SCH (10:36)
[2021-07-25] MEDS: PRENATAL VITAMINS W/ FOLIC ACID TABLET (FP) PO SCH (10:36)
[2021-07-25] MEDS: NICOTINE POLACRILEX 2 MG GUM BUC PRN ×3 (10:37→19:53)
[2021-07-25] MEDS: LIDOCAINE 5% TOPICAL PATCH TP SCH (10:40)
[2021-07-25] MEDS ORDERED: TOPIRAMATE 25 MG TABLET PO ONE (11:06)
[2021-07-25] MEDS ORDERED: TOPIRAMATE PO ONE (11:35)
[2021-07-25] MEDS: THIAMINE HCL 100 MG TABLET (FP) PO SCH (21:17)
[2021-07-25] MEDS: MELATONIN 5 MG TABLETS PO PRN (21:17)
[2021-07-25] MEDS: LIDOCAINE PATCH REMOVAL MC SCH (21:36)
[2021-07-26] MEDS: NICOTINE 10 MG CARTRIDGE (INHALER) IH PRN ×4 (06:09→19:31)
[2021-07-26] MEDS: MAGNESIUM HYDROX 2400MG/30ML ORAL SUSPENSION 30 ML CUP PO PRN ×2 (06:58→22:02)
[2021-07-26] MEDS: NICOTINE POLACRILEX 2 MG GUM BUC PRN ×4 (08:57→21:22)
[2021-07-26] MEDS ORDERED: TOPIRAMATE 100 MG TABLET PO SCH (10:00)
[2021-07-26] MEDS: PRENATAL VITAMINS W/ FOLIC ACID TABLET (FP) PO SCH (10:44)
[2021-07-26] MEDS: NICOTINE 7 MG/24 HOURS TOPICAL PATCH TD SCH (10:45)
[2021-07-26] MEDS: LIDOCAINE 5% TOPICAL PATCH TP SCH (10:45)
[2021-07-26] MEDS: TOPIRAMATE 100 MG, TOPIRAMATE 50 MG PO SCH (10:46)
[2021-07-26] MEDS: hydrOXYzine PAMOATE 25 MG CAPSULE (FP) PO PRN (21:19)
[2021-07-26] MEDS: THIAMINE HCL 100 MG TABLET (FP) PO SCH (21:19)
[2021-07-26] MEDS: MELATONIN 5 MG TABLETS PO PRN (21:19)
[2021-07-26] MEDS: LIDOCAINE PATCH REMOVAL MC SCH (21:19)
[2021-07-27] MEDS: NICOTINE 10 MG CARTRIDGE (INHALER) IH PRN ×3 (05:49→21:26)
[2021-07-27] MEDS: PRENATAL VITAMINS W/ FOLIC ACID TABLET (FP) PO SCH (10:54)
[2021-07-27] MEDS: NICOTINE 7 MG/24 HOURS TOPICAL PATCH TD SCH (10:55)
[2021-07-27] MEDS: LIDOCAINE 5% TOPICAL PATCH TP SCH (10:55)
[2021-07-27] MEDS: TOPIRAMATE 100 MG, TOPIRAMATE 50 MG PO SCH (10:56)
[2021-07-27] MEDS: METHYL SALICYLATE/MENTHOL OINT 30 GM TUBE TP SCH ×2 (16:40→21:26)
[2021-07-27] MEDS: NICOTINE POLACRILEX 2 MG GUM BUC PRN (16:41)
[2021-07-27] MEDS: THIAMINE HCL 100 MG TABLET (FP) PO SCH (21:26)
[2021-07-27] MEDS: LIDOCAINE PATCH REMOVAL MC SCH (21:26)
[2021-07-27] MEDS: MELATONIN 5 MG TABLETS PO PRN (21:26)
[2021-07-27] MEDS: MAGNESIUM HYDROX 2400MG/30ML ORAL SUSPENSION 30 ML CUP PO PRN (21:28)
[2021-07-28] MEDS: NICOTINE 10 MG CARTRIDGE (INHALER) IH PRN ×4 (05:58→19:02)
[2021-07-28] MEDS: NICOTINE POLACRILEX 2 MG GUM BUC PRN ×5 (05:58→21:18)
[2021-07-28] MEDS: METHYL SALICYLATE/MENTHOL OINT 30 GM TUBE TP SCH ×2 (10:39→21:16)
[2021-07-28] MEDS: LIDOCAINE 5% TOPICAL PATCH TP SCH (10:40)
[2021-07-28] MEDS: PRENATAL VITAMINS W/ FOLIC ACID TABLET (FP) PO SCH (10:40)
[2021-07-28] MEDS: NICOTINE 7 MG/24 HOURS TOPICAL PATCH TD SCH (10:40)
[2021-07-28] MEDS: TOPIRAMATE 100 MG, TOPIRAMATE 50 MG PO SCH (10:41)
[2021-07-28] MEDS: MELATONIN 5 MG TABLETS PO PRN (21:16)
[2021-07-28] MEDS: LIDOCAINE PATCH REMOVAL MC SCH (21:16)
[2021-07-28] MEDS: THIAMINE HCL 100 MG TABLET (FP) PO SCH (21:16)
[2021-07-29] MEDS: NICOTINE POLACRILEX 2 MG GUM BUC PRN ×4 (06:30→21:55)
[2021-07-29] MEDS: NICOTINE 10 MG CARTRIDGE (INHALER) IH PRN ×4 (06:30→19:55)
[2021-07-29] MEDS: PRENATAL VITAMINS W/ FOLIC ACID TABLET (FP) PO SCH (10:50)
[2021-07-29] MEDS: LIDOCAINE 5% TOPICAL PATCH TP SCH (10:50)
[2021-07-29] MEDS: NICOTINE 7 MG/24 HOURS TOPICAL PATCH TD SCH (10:51)
[2021-07-29] MEDS: METHYL SALICYLATE/MENTHOL OINT 30 GM TUBE TP SCH ×2 (10:53→21:53)
[2021-07-29] MEDS: TOPIRAMATE 100 MG, TOPIRAMATE 50 MG PO SCH (10:53)
[2021-07-29] MEDS: THIAMINE HCL 100 MG TABLET (FP) PO SCH (21:53)
[2021-07-29] MEDS: LIDOCAINE PATCH REMOVAL MC SCH (21:53)
[2021-07-29] MEDS: MELATONIN 5 MG TABLETS PO PRN (21:54)
[2021-07-30] MEDS: NICOTINE 10 MG CARTRIDGE (INHALER) IH PRN ×4 (05:52→21:51)
[2021-07-30] MEDS: NICOTINE POLACRILEX 2 MG GUM BUC PRN ×3 (09:00→17:37)
[2021-07-30] MEDS: METHYL SALICYLATE/MENTHOL OINT 30 GM TUBE TP SCH ×2 (10:04→21:51)
[2021-07-30] MEDS: NICOTINE 7 MG/24 HOURS TOPICAL PATCH TD SCH (10:05)
[2021-07-30] MEDS: PRENATAL VITAMINS W/ FOLIC ACID TABLET (FP) PO SCH (10:05)
[2021-07-30] MEDS: LIDOCAINE 5% TOPICAL PATCH TP SCH (10:05)
[2021-07-30] MEDS: TOPIRAMATE 100 MG, TOPIRAMATE 50 MG PO SCH (10:05)
[2021-07-30] MEDS: LIDOCAINE PATCH REMOVAL MC SCH (21:51)
[2021-07-30] MEDS: MELATONIN 5 MG TABLETS PO PRN (21:51)
[2021-07-30] MEDS: THIAMINE HCL 100 MG TABLET (FP) PO SCH (21:52)
[2021-07-31] MEDS: NICOTINE 10 MG CARTRIDGE (INHALER) IH PRN ×5 (06:39→23:31)
[2021-07-31] MEDS: NICOTINE POLACRILEX 2 MG GUM BUC PRN ×5 (07:38→21:31)
[2021-07-31] MEDS: METHYL SALICYLATE/MENTHOL OINT 30 GM TUBE TP SCH ×2 (10:47→21:33)
[2021-07-31] MEDS: PRENATAL VITAMINS W/ FOLIC ACID TABLET (FP) PO SCH (10:47)
[2021-07-31] MEDS: LIDOCAINE 5% TOPICAL PATCH TP SCH (10:47)
[2021-07-31] MEDS: TOPIRAMATE 100 MG, TOPIRAMATE 50 MG PO SCH (10:47)
[2021-07-31] MEDS: NICOTINE 7 MG/24 HOURS TOPICAL PATCH TD SCH (10:47)
[2021-07-31] MEDS: MINERAL OIL/PETROLAT/WATER TOPICAL CREAM 113 GM JAR TP SCH (15:45)
[2021-07-31] MEDS: MELATONIN 5 MG TABLETS PO PRN (21:30)
[2021-07-31] MEDS: THIAMINE HCL 100 MG TABLET (FP) PO SCH (21:30)
[2021-07-31] MEDS: MAGNESIUM HYDROX 2400MG/30ML ORAL SUSPENSION 30 ML CUP PO PRN (21:32)
[2021-07-31] MEDS: LIDOCAINE PATCH REMOVAL MC SCH (21:32)
[2021-08-01] MEDS: NICOTINE 10 MG CARTRIDGE (INHALER) IH PRN ×4 (06:34→18:57)
[2021-08-01] MEDS: NICOTINE POLACRILEX 2 MG GUM BUC PRN ×3 (09:05→21:25)
[2021-08-01] MEDS: LIDOCAINE 5% TOPICAL PATCH TP SCH (10:54)
[2021-08-01] MEDS: METHYL SALICYLATE/MENTHOL OINT 30 GM TUBE TP SCH ×2 (10:54→21:44)
[2021-08-01] MEDS: NICOTINE 7 MG/24 HOURS TOPICAL PATCH TD SCH (10:55)
[2021-08-01] MEDS: PRENATAL VITAMINS W/ FOLIC ACID TABLET (FP) PO SCH (10:55)
[2021-08-01] MEDS: MINERAL OIL/PETROLAT/WATER TOPICAL CREAM 113 GM JAR TP SCH (10:56)
[2021-08-01] MEDS: TOPIRAMATE 100 MG, TOPIRAMATE 50 MG PO SCH (11:23)
[2021-08-01] MEDS: THIAMINE HCL 100 MG TABLET (FP) PO SCH (21:24)
[2021-08-01] MEDS: MELATONIN 5 MG TABLETS PO PRN (21:24)
[2021-08-01] MEDS: LIDOCAINE PATCH REMOVAL MC SCH (21:45)
[2021-08-02] MEDS: NICOTINE 10 MG CARTRIDGE (INHALER) IH PRN ×5 (06:18→23:32)
[2021-08-02] MEDS: NICOTINE POLACRILEX 2 MG GUM BUC PRN ×4 (07:20→19:33)
[2021-08-02] MEDS: METHYL SALICYLATE/MENTHOL OINT 30 GM TUBE TP SCH ×2 (10:33→21:22)
[2021-08-02] MEDS: LIDOCAINE 5% TOPICAL PATCH TP SCH (10:33)
[2021-08-02] MEDS: TOPIRAMATE 100 MG, TOPIRAMATE 50 MG PO SCH (10:34)
[2021-08-02] MEDS: PRENATAL VITAMINS W/ FOLIC ACID TABLET (FP) PO SCH (10:34)
[2021-08-02] MEDS: NICOTINE 7 MG/24 HOURS TOPICAL PATCH TD SCH (10:34)
[2021-08-02] MEDS: MINERAL OIL/PETROLAT/WATER TOPICAL CREAM 113 GM JAR TP SCH (10:36)
[2021-08-02] MEDS: MAGNESIUM HYDROX 2400MG/30ML ORAL SUSPENSION 30 ML CUP PO PRN (12:56)
[2021-08-02] MEDS: MELATONIN 5 MG TABLETS PO PRN (21:21)
[2021-08-02] MEDS: LIDOCAINE PATCH REMOVAL MC SCH (21:22)
[2021-08-02] MEDS: THIAMINE HCL 100 MG TABLET (FP) PO SCH (21:22)
[2021-08-03] MEDS: NICOTINE 10 MG CARTRIDGE (INHALER) IH PRN ×4 (06:48→18:50)
[2021-08-03] MEDS: NICOTINE POLACRILEX 2 MG GUM BUC PRN ×3 (07:32→18:08)
[2021-08-03] MEDS: METHYL SALICYLATE/MENTHOL OINT 30 GM TUBE TP SCH ×2 (09:58→21:11)
[2021-08-03] MEDS: NICOTINE 7 MG/24 HOURS TOPICAL PATCH TD SCH (09:58)
[2021-08-03] MEDS: PRENATAL VITAMINS W/ FOLIC ACID TABLET (FP) PO SCH (09:58)
[2021-08-03] MEDS: LIDOCAINE 5% TOPICAL PATCH TP SCH (09:58)
[2021-08-03] MEDS: MINERAL OIL/PETROLAT/WATER TOPICAL CREAM 113 GM JAR TP SCH (09:58)
[2021-08-03] MEDS: TOPIRAMATE 100 MG, TOPIRAMATE 50 MG PO SCH (12:10)
[2021-08-03] MEDS: LIDOCAINE PATCH REMOVAL MC SCH (21:11)
[2021-08-03] MEDS: MELATONIN 5 MG TABLETS PO PRN (21:11)
[2021-08-03] MEDS: THIAMINE HCL 100 MG TABLET (FP) PO SCH (21:11)
[2021-08-04] MEDS: NICOTINE 10 MG CARTRIDGE (INHALER) IH PRN ×5 (06:52→23:05)
[2021-08-04] MEDS: MINERAL OIL/PETROLAT/WATER TOPICAL CREAM 113 GM JAR TP SCH (10:53)
[2021-08-04] MEDS: PRENATAL VITAMINS W/ FOLIC ACID TABLET (FP) PO SCH (10:54)
[2021-08-04] MEDS: LIDOCAINE 5% TOPICAL PATCH TP SCH (10:59)
[2021-08-04] MEDS: METHYL SALICYLATE/MENTHOL OINT 30 GM TUBE TP SCH ×2 (11:00→21:15)
[2021-08-04] MEDS: NICOTINE 7 MG/24 HOURS TOPICAL PATCH TD SCH (11:00)
[2021-08-04] MEDS: TOPIRAMATE 100 MG, TOPIRAMATE 50 MG PO SCH (12:48)
[2021-08-04] MEDS: NICOTINE POLACRILEX 2 MG GUM BUC PRN ×2 (12:51→21:17)
[2021-08-04] MEDS: LIDOCAINE PATCH REMOVAL MC SCH (21:15)
[2021-08-04] MEDS: THIAMINE HCL 100 MG TABLET (FP) PO SCH (21:16)
[2021-08-04] MEDS: MELATONIN 5 MG TABLETS PO PRN (21:16)
[2021-08-05] MEDS: NICOTINE 10 MG CARTRIDGE (INHALER) IH PRN ×5 (06:50→22:29)
[2021-08-05] MEDS: PRENATAL VITAMINS W/ FOLIC ACID TABLET (FP) PO SCH (10:02)
[2021-08-05] MEDS: NICOTINE 7 MG/24 HOURS TOPICAL PATCH TD SCH (10:02)
[2021-08-05] MEDS: MINERAL OIL/PETROLAT/WATER TOPICAL CREAM 113 GM JAR TP SCH (10:02)
[2021-08-05] MEDS: METHYL SALICYLATE/MENTHOL OINT 30 GM TUBE TP SCH ×2 (10:02→21:16)
[2021-08-05] MEDS: TOPIRAMATE 100 MG, TOPIRAMATE 50 MG PO SCH (10:03)
[2021-08-05] MEDS: LIDOCAINE 5% TOPICAL PATCH TP SCH (10:04)
[2021-08-05] MEDS: NICOTINE POLACRILEX 2 MG GUM BUC PRN (11:14)
[2021-08-05] MEDS: THIAMINE HCL 100 MG TABLET (FP) PO SCH (21:16)
[2021-08-05] MEDS: MELATONIN 5 MG TABLETS PO PRN (21:16)
[2021-08-05] MEDS: LIDOCAINE PATCH REMOVAL MC SCH (21:16)
[2021-08-06] MEDS: NICOTINE 10 MG CARTRIDGE (INHALER) IH PRN ×4 (06:27→19:05)
[2021-08-06] MEDS: MAGNESIUM HYDROX 2400MG/30ML ORAL SUSPENSION 30 ML CUP PO PRN (07:03)
[2021-08-06] MEDS: METHYL SALICYLATE/MENTHOL OINT 30 GM TUBE TP SCH ×2 (09:48→21:18)
[2021-08-06] MEDS: MINERAL OIL/PETROLAT/WATER TOPICAL CREAM 113 GM JAR TP SCH (09:48)
[2021-08-06] MEDS: TOPIRAMATE 100 MG, TOPIRAMATE 50 MG PO SCH (09:49)
[2021-08-06] MEDS: LIDOCAINE 5% TOPICAL PATCH TP SCH (09:49)
[2021-08-06] MEDS: NICOTINE 7 MG/24 HOURS TOPICAL PATCH TD SCH (09:49)
[2021-08-06] MEDS: PRENATAL VITAMINS W/ FOLIC ACID TABLET (FP) PO SCH (09:49)
[2021-08-06] MEDS: NICOTINE POLACRILEX 2 MG GUM BUC PRN ×2 (17:54→21:19)
[2021-08-06] MEDS: LIDOCAINE PATCH REMOVAL MC SCH (21:18)
[2021-08-06] MEDS: MELATONIN 5 MG TABLETS PO PRN (21:18)
[2021-08-06] MEDS: THIAMINE HCL 100 MG TABLET (FP) PO SCH (21:18)
[2021-08-07] MEDS: NICOTINE 10 MG CARTRIDGE (INHALER) IH PRN ×2 (03:40→09:34)
[2021-08-07] MEDS: NICOTINE POLACRILEX 2 MG GUM BUC PRN (06:34)
[2021-08-07 07:06] VITALS: BP 100/70; PULSE 72; TEMP 97.5
[2021-08-07] MEDS: METHYL SALICYLATE/MENTHOL OINT 30 GM TUBE TP SCH (09:34)
[2021-08-07] MEDS: TOPIRAMATE 100 MG, TOPIRAMATE 50 MG PO SCH (09:34)
[2021-08-07] MEDS: PRENATAL VITAMINS W/ FOLIC ACID TABLET (FP) PO SCH (09:35)
[2021-08-07] MEDS: NICOTINE 7 MG/24 HOURS TOPICAL PATCH TD SCH (09:35)
[2021-08-07] MEDS: LIDOCAINE 5% TOPICAL PATCH TP SCH (09:35)
[2021-08-07] MEDS: MINERAL OIL/PETROLAT/WATER TOPICAL CREAM 113 GM JAR TP SCH (09:35)
== END 2021-08-07 09:50 | disposition home or self-care (01) | DRG 772 ==
LOC: YASAS 14:41 → Y5N 20:55
PROVIDERS: ADMIT Allergy & Immunology; ATTEND Allergy & Immunology
PROC: HZ42ZZZ Group Counseling for Substance Abuse Treatment, Cognitive-Behavioral (ICD-10-PCS; principal; 2021-07-24)
DX: F10.20 Alcohol dependence, uncomplicated (principal); F17.210 Nicotine dependence, cigarettes, uncomplicated; F31.9 Bipolar disorder, unspecified; F39 Unspecified mood [affective] disorder; Z56.0 Unemployment, unspecified; Z59.01 Sheltered homelessness
CPT/HCPCS: 81025; C9803-CS; U0003; U0005